=== PATIENT | female | born 1970 | race African-American/Black ===

== ENCOUNTER 2018-06-24 09:25 | Day surgery (SDC) | payer MEDICAID ==
[2018-06-23 15:11] LABS: BASOPHILS 0.1 % (0-2); EOSINOPHILS 0.3 % (0-7); HEMATOCRIT 41.9 % (36.0-48.0); HEMOGLOBIN 15.1 g/dL (12-16); IMMATURE GRANULOCYTES 0.3 % (0-5); LYMPHOCYTES 42.4 % (15-50); MCH 35.5 pg (26.0-34.0); MCV 98.6 fL (80.0-100.0); MEAN PLATELET VOLUME 8.5 fL (7.4-10.4); MONOCYTES 8.8 % (2-11); NEUTROPHILS 48.1 % (40-80); PLATELET COUNT 174 10x3/uL (130-400); RBC 4.25 10x6/uL (4.00-5.40); RDW 14.1 % (11.5-14.5); WBC 7.9 10x3/uL (4.8-10.8)
[2018-06-23 15:27] LABS: ANION GAP 13.7 mmol/L (8-16); CALCIUM 9.3 mg/dL (8.5-10.1); CARBON DIOXIDE 25.7 mmol/L (21.0-32.0); POTASSIUM - SERUM 3.4 mmol/L (3.5-5.1)
[2018-06-23 15:53] LABS: APTT 30.1 SECONDS (22.8-39.4); INR 1.03 (0.85-1.17); PROTIME 13.1 SECONDS (11.6-15.0)
[~2018-06-24] VITALS: Ht 160 cm; Wt 65.8 kg
--- NOTE | ~2018-06-24 | OP ---
PATIENT NAME: RADHA FERMIN MEDICAL RECORD: [id number] :72 LOCATION:[facility] ADMISSION DATE: SURGEON: KATELYN SPANGLER MD DATE OF OPERATION: 06/24/2018 PREOPERATIVE DIAGNOSES: Impingement syndrome of the right shoulder, acromioclavicular arthritis, and rotator cuff tear. POSTOPERATIVE DIAGNOSES: Impingement syndrome of the right shoulder, acromioclavicular arthritis, and rotator cuff tear plus biceps tendinitis. PROCEDURES: 1. Arthroscopic rotator cuff repair. 2. Arthroscopic biceps tenotomy. 3. Arthroscopic distal clavicle excision done through separate incision -- 1 cm. 4. Arthroscopic subacromial decompression, acromioplasty, and bursectomy. SURGEON: Katelyn Spangler MD ANESTHESIA: General. INTRAOPERATIVE COMPLICATIONS: None. SUMMARY OF PATHOLOGIC FINDINGS: The patient did have some substantial labral tearing that was gently debrided with severe biceps tendinitis, downward sloping acromion with acromioclavicular arthritis as well as a small attritional rotator cuff tear. All of these were addressed as listed below. OPERATIVE SUMMARY IN DETAIL: After obtaining the appropriate preoperative orthopedic surgery consent as well as anesthetic consultation, evaluation and clearance, the patient was brought to the operating room and placed on the operating table in supine position. After adequate general laryngeal mask airway was administered, the patient was placed in a left lateral decubitus position. All pressure points were well padded to include down leg peroneal pad as well as axillary roll. The patient was held firmly to the operating table using vacuum pack suction system. Right upper extremity and shoulder were then prepped and draped in routine sterile fashion. The arm was held in the Arthrex traction boom at 30 degrees of forward flexion, 30 degrees of abduction, 10 pounds of traction laterally. Arthroscopy was established in the glenohumeral joint for posterior portal. Anterior portal was established in the anterior safe interval. Diagnostic arthroscopy did show the patient to have the above-mentioned rotator cuff tear as well as severe biceps tendinitis and labral tearing was noted. Transrotator cuff portal was created and through which the shaver was utilized to gently debride the rotator cuff and then lastly intraarticularly the inflamed synovium was taken down and a biceps tenotomy was performed. Having completed this, the articular aspect of the supraspinatus tendinous footprint was decorticated for later reapproximation. Attention then turned to the subacromial space. While on subacromial space, Weaver tissue ablation system was used to denude the undersurface of the acromion of all soft tissue elements and release the coracoacromial ligament. A 5-0 barrel bur was used to perform acromioplasty at the level of acromioclavicular joint and through an anterior arthroscopic portal under direct arthroscopic visualization, distal clavicle was excised for 1 cm. Next, all bursa was taken down anteriorly, posteriorly, laterally and superiorly. Ironically, this patient had OPERATIVE REPORT [id number] RADHA FERMIN severe bursitis. Further decortication of the supraspinatus tendinous footprint was followed by a hitched inverted FiberWire suture that was secured laterally with a 5.5 SwiveLock from Arth[employer] resulting in excellent rotator cuff reapproximation back to the supraspinatus insertion. Having completed this, arthroscopy portals were closed in routine interrupted fashion using 4-0 Prolene. Sterile dressings were applied. The patient was awakened, taken to recovery room in stable condition. All final needle and sponge counts were correct. TRANSINT:[id number] Voice Confirmation ID: [id number] DOCUMENT ID: [id number] ANÍBAL WEAVER, KATELYN DIAMOND at 0844 CC: [id number] DICTATION DATE: 06/25/18 1306 [employer] MA[employer]GER: 06/25/18 1316 [facility] 06/24/18 [facility] [address] [place] [address]
[~2018-06-24 09:25] MED LIST: K-DUR20 MEQ PO; TRIUMEQ TABLET1 EACH PO
[2018-06-24 12:25] VITALS: BP 131/100; Ht 160 cm; Wt 65.8 kg
[2018-06-24] MEDS ORDERED: NORCO 10-325 TA1 TAB PO (14:51)
== END 2018-06-24 18:00 | disposition home or self-care (01) ==
LOC: D.OPS 09:25 → D.PAN 11:00 → D.OPS 12:00
PROVIDERS: Anesthesiology
DX: S43.421A Sprain of right rotator cuff capsule, initial encounter (principal); M13.811 Other specified arthritis, right shoulder; M75.21 Bicipital tendinitis, right shoulder

== ENCOUNTER 2018-07-09 18:36 | Emergency (ER) | payer MEDICAID ==
[~2018-07-09] VITALS: Ht 160 cm; Wt 65.9 kg
[~2018-07-09 18:36] MED LIST changes: +NORCO 10-325 TA1 TAB PO
[2018-07-09 18:51] VITALS: Ht 160 cm; Wt 65.9 kg
[2018-07-09 20:34] LABS: BASOPHILS 0.1 % (0-2); EOSINOPHILS 0.6 % (0-7); HEMATOCRIT 40.3 % (36.0-48.0); HEMOGLOBIN 14.6 g/dL (12-16); IMMATURE GRANULOCYTES 0.2 % (0-5); LYMPHOCYTES 41.8 % (15-50); MCH 35.4 pg (26.0-34.0); MCHC 36.2 g/dL (31.0-37.0); MCV 97.8 fL (80.0-100.0); MEAN PLATELET VOLUME 8.8 fL (7.4-10.4); MONOCYTES 6.3 % (2-11); PLATELET COUNT 189 10x3/uL (130-400); RBC 4.12 10x6/uL (4.00-5.40); RDW 13.4 % (11.5-14.5); WBC 8.5 10x3/uL (4.8-10.8)
[2018-07-09 20:43] LABS: UDS - AMPHET NEGATIVE QUAL (NEGATIVE); UDS - BARB NEGATIVE QUAL (NEGATIVE); UDS - BENZO NEGATIVE QUAL (NEGATIVE); UDS - COCAINE NEGATIVE QUAL (NEGATIVE); UDS - OPIATE POSITIVE QUAL (NEGATIVE); UDS - PCP NEGATIVE QUAL (NEGATIVE); UDS - THC NEGATIVE QUAL (NEGATIVE)
[2018-07-09 20:50] LABS: ALBUMIN 3.8 g/dL (3.4-5.0); ALKALINE PHOSPHATASE 88 U/L (46-116); ALT (SGPT) 21 U/L (10-68); BILIRUBIN - TOTAL 0.22 mg/dL (0.2-1.3); CALC OSMOLALITY 270 mosm/kg (275-300); CALCIUM 9.3 mg/dL (8.5-10.1); CARBON DIOXIDE 29.5 mmol/L (21.0-32.0); CHLORIDE - SERUM 99 mmol/L (98-107); CREATININE - SERUM 0.8 mg/dL (0.6-1.3); GLUCOSE 99 mg/dL (74-106); PROTEIN - SERUM 7.9 g/dL (6.4-8.2); SODIUM 137 mmol/L (136-145); UREA NITROGEN 5 mg/dL (7-18); eGFR NON AFRICAN AMERICAN 81 mL/min (90-120)
[2018-07-09 21:02] LABS: POTASSIUM - SERUM 2.9 mmol/L (3.5-5.1)
[2018-07-09 21:07] LABS: APPEARANCE CLEAR (CLEAR); BILIRUBIN NEGATIVE (NEGATIVE); COLOR YELLOW (YELLOW); GLUCOSE NEGATIVE (NEGATIVE); KETONE NEGATIVE (NEGATIVE); NITRITE NEGATIVE (NEGATIVE); PROTEIN TRACE mg/dL (NEGATIVE); SPECIFIC GRAVITY 1.015 (1.005-1.020); UROBILINOGEN NORMAL (NORMAL)
[2018-07-09] MEDS ORDERED: KLOR-CON 1010 MEQ PO (21:14)
[2018-07-09 21:20] LABS: BACTERIA MODERATE /hpf (NONE SEEN); EPITHELIAL CELLS 0-5 /hpf (0-5); RED CELLS - URINE 0-5 /hpf (0-5); WHITE CELLS - URINE 0-5 /hpf (0-5)
[2018-07-09 21:21] LABS: YEAST >1+ /hpf (NONE SEEN)
[2018-07-09 21:50] VITALS: BP 137/89
== END 2018-07-09 21:50 | disposition home or self-care (01) ==
LOC: D.ER 18:36
PROVIDERS: Family Medicine
DX: G43.909 Migraine, unspecified, not intractable, without status migrainosus (principal); F22 Delusional disorders; B20 Human immunodeficiency virus [HIV] disease; E87.6 Hypokalemia; Z86.59 Personal history of other mental and behavioral disorders

== ENCOUNTER → 2020-03-30 13:45 | Outpatient (CLI) | payer MEDICAID ==
[2018-07-09 18:51] VITALS: BMI 25.7
[~2020-03-30 13:45] MED LIST changes: +KLOR-CON 1010 MEQ PO
== END | disposition home or self-care (01) ==
LOC: D.MRI 13:45
PROVIDERS: ATTEND Orthopaedic Surgery
DX: M75.122 Complete rotator cuff tear or rupture of left shoulder, not specified as traumatic (principal)